=== PATIENT | male | born 1980 | race Hispanic/Latino ===

== ENCOUNTER 2023-12-04 01:37 | Emergency (ER) | payer SELFPAY ==
[~2023-12-04] VITALS: Ht 160 cm; Wt 63.0 kg
[~2023-12-04 01:37] MED LIST: ACCU-CHEK FASTCLIX L XX; METFORMIN500 M2 PO; NOVOLIN 70/30 INNLT SC
[2023-12-04] MEDS ORDERED: SODIUM CHLORIDE 0.9% 1,000 ML IV ONE ×2 (02:05→06:45)
[2023-12-04] MEDS ORDERED: INSULIN REGULAR (HUMAN) 100 UNIT/ML INJ IV ONE ×2 (02:05→06:45)
[2023-12-04 02:25] VITALS: BP 159/101
[2023-12-04 02:40] LABS: BASO% 0.5 % (0-3); EOS% 9.9 % (0-8); HEMATOCRIT 43.6 % (39.0-50.0); HEMOGLOBIN 15.3 g/dl (14.0-18.0); IMMATURE GRANULOCYTES 0.1 % (0.0-5.0); LYMPH% 30.4 % (15-41); MEAN CELL VOLUME 88.6 fL CALC (80.0-100.0); MEAN CORPUSCULAR HGB 31.1 pG CALC (26.0-32.0); MEAN CORPUSCULAR HGB CONC 35.1 g/dL CAL (32.0-36.0); MONO% 7.8 % (2-13); NEUT# 3.89 thou/uL (1.82-7.42); NEUT% 51.3 % (42-76); RED BLOOD COUNT 4.92 mill/uL (4.70-6.10); RED CELL DISTRI WIDTH 11.7 % (11.5-15.5)
[2023-12-04 02:43] LABS: URINE BILIRUBIN - DIPSTICK Negative (NEGATIVE); URINE BLOOD DIPSTICK Negative (NEGATIVE); URINE GLUCOSE - DIPSTICK 500 mg/dL (NEGATIVE); URINE KETONE Negative (NEGATIVE); URINE LEUK ESTERASE Negative (NEGATIVE); URINE NITRITE - DIPSTICK Negative (Negative); URINE PROTEIN - DIPSTICK Negative (NEG-TRACE); URINE UROBILINOGEN - DIPSTICK 0.2 E.U./dL (0.2)
[2023-12-04 02:44] LABS: URINE COLOR Yellow
[2023-12-04] MEDS ORDERED: METFORMIN500 M2 PO (02:48)
[2023-12-04 02:49] LABS: ALBUMIN 4.2 g/dL (3.2-5.0); ALKALINE PHOSPHATASE 228 u/l (38-126); ANION GAP 11 (6-22 (CALC)); BILIRUBIN, TOTAL 0.8 mg/dL (0.2-1.3); BUN 11 mg/dL (9-20); BUN/CREATININE RATIO 19 (12-20 (CALC)); CARBON DIOXIDE 22 mmol/l (22-30); CHLORIDE 102 mmol/l (95-108); CPK 197 u/l (55-170); CREATININE 0.6 mg/dL (0.7-1.3); ESTIMATED GFR 124 ML/MIN (>=90 (CALC)); LIPASE 99 u/l (23-300); MAGNESIUM 1.9 mg/dL (1.6-2.3); POTASSIUM 3.8 mmol/l (3.5-5.1); SGOT/AST 47 u/l (17-59); SODIUM 131 mmol/l (137-146); TOTAL PROTEIN 6.8 g/dL (6.3-8.2)
[2023-12-04 03:00] VITALS: BP 149/96
[2023-12-04 04:00] VITALS: BP 140/98
[2023-12-04 06:57] VITALS: BP 126/91
[2023-12-04 07:00] VITALS: BP 152/92
[2023-12-04 09:01] VITALS: BP 152/92
== END 2023-12-04 10:09 | disposition home or self-care (01) | DRG 639 ==
LOC: ED 01:37 → EDBD 02:25 → ED 02:25
PROVIDERS: Internal Medicine
DX: E11.65 Type 2 diabetes mellitus with hyperglycemia (principal); Z79.84 Long term (current) use of oral hypoglycemic drugs
CPT/HCPCS: Q9967